=== PATIENT | female | born 1980 | race Caucasian/White ===

== ENCOUNTER 2017-04-29 21:58 | Inpatient (IN) | payer OTHER ==
[2017-04-29 22:37] LABS: Hematocrit 39 % (35-47); Hemoglobin 13.1 g/dl (12.0-16.0); Mean Corpuscular HGB Conc 34 g/dl (31-36); Mean Corpuscular Hemoglobin 30 pg (27-31); Mean Corpuscular Volume 88 fL (80-97); Mean Platelet Volume 9 um3 (7.4-10.4); Red Blood Count 4.44 10^6/ul (4.0-5.4); Red Cell Distribution Width 13 % (10.5-15); White Blood Count 11.3 10^3/ul (3.5-10.8)
[2017-04-30] MEDS ORDERED: OBEPIDURAL* 250 ML ONE (02:25)
[2017-04-30] MEDS ORDERED: Famotidine TAB* 20 MG PO PRN (02:40)
[2017-04-30] MEDS ORDERED: Sodium Citrate/Citric Acid* 15 ML UDC PO PRN (02:40)
[2017-04-30] MEDS ORDERED: Phenylephrine IV* 40 MCG/ML 10 ML SYRINGE IV PUSH PRN ×2 (02:40)
[2017-04-30] MEDS ORDERED: OBEPIDURAL* 250 ML EPIDURAL SCH (03:00)
[2017-04-30] MEDS ORDERED: Oxytocin in LR* 20 UNITS/1,000 ML BAG IVPB ONE (05:05)
[2017-04-30] MEDS ORDERED: Oxytocin in LR* 20 UNITS/1,000 ML BAG IVPB SCH ×2 (06:00→13:00)
[2017-04-30] MEDS ORDERED: Witch Hazel PAD* JAR TOPICAL PRN (11:26)
[2017-04-30] MEDS ORDERED: Dibucaine 1% 28.35 GM TUBE PR PRN (11:26)
[2017-04-30] MEDS ORDERED: Glycerin ADULT SUPP PR PRN (11:26)
[2017-04-30] MEDS ORDERED: Acetaminophen TAB* 325 MG PO PRN (11:26)
[2017-04-30] MEDS ORDERED: oxyCODONE/Acetamin 5/325 MG* TAB PO PRN (11:26)
[2017-04-30] MEDS ORDERED: Misoprostol TAB* 200 MCG ONE (12:25)
[2017-04-30] MEDS ORDERED: Simethicone CHEW TAB* 80 MG PO SCH (12:30)
[2017-04-30] MEDS ORDERED: Misoprostol TAB* 200 MCG PR ONE (12:32)
[2017-04-30] MEDS ORDERED: Ammonia Inhalant* 1 EA AMP ONE ×2 (13:43→15:38)
[2017-04-30] MEDS: Docusate CAP* 100 MG PO SCH ×2 (14:00→19:40)
[2017-04-30] MEDS ORDERED: Phenylephrine IV* 40 MCG/ML 10 ML SYRINGE ONE (18:47)
[2017-04-30] MEDS ORDERED: Zolpidem TAB* 5 MG PO PRN (21:00)
[2017-05-01 08:00] LABS: Hematocrit 29 % (35-47); Hemoglobin 9.9 g/dl (12.0-16.0); Mean Corpuscular HGB Conc 34 g/dl (31-36); Mean Corpuscular Hemoglobin 30 pg (27-31); Mean Corpuscular Volume 88 fL (80-97); Mean Platelet Volume 9 um3 (7.4-10.4); Red Blood Count 3.29 10^6/ul (4.0-5.4); Red Cell Distribution Width 13 % (10.5-15); White Blood Count 10.7 10^3/ul (3.5-10.8)
[2017-05-01] MEDS: Ibuprofen TAB* 600 MG PO PRN ×2 (10:21→19:41)
[2017-05-01] MEDS: Ferrous Gluconate TAB* 324 MG TAB PO SCH ×2 (10:21→19:40)
[2017-05-01] MEDS: Docusate CAP* 100 MG PO SCH ×3 (10:21→19:40)
[2017-05-02 07:46] VITALS: BP 115/78
[2017-05-02] MEDS: Ferrous Gluconate TAB* 324 MG TAB PO SCH (08:04)
[2017-05-02] MEDS: Docusate CAP* 100 MG PO SCH (08:04)
[2017-05-02] MEDS: Ibuprofen TAB* 600 MG PO PRN (08:04)
== END 2017-05-02 12:55 | disposition home or self-care (01) | DRG 775 ==
LOC: MCHOBOUT 21:58 → MCHOB 22:18
PROVIDERS: ADMIT Obstetrics & Gynecology; ATTEND Obstetrics & Gynecology
PROC: 10E0XZZ Delivery of Products of Conception, External Approach (ICD-10-PCS; principal; 2017-04-30)
DX: O42.013 Preterm premature rupture of membranes, onset of labor within 24 hours of rupture, third trimester (principal); O75.89 Other specified complications of labor and delivery; Z3A.36 36 weeks gestation of pregnancy; Z37.0 Single live birth
CPT/HCPCS: 36415; 85025; 86850; 86900; 86901; A9270-GY

== ENCOUNTER 2018-05-10 11:32 | Emergency (ER) | payer OTHER ==
[2018-05-10 11:53] VITALS: BP 127/80
--- NOTE | 2018-05-10 12:28 | UC ---
Throat Pain/Nasal Thanh HPI - HPI Summary HPI Summary: The patient is a 37-year-old female that comes here for the evaluation of mouth lesions. She states that in early March she had a severe sore throat. She states that her tonsils were enlarged and had white spots on them. She had a difficult time swallowing. She had a strep test performed and it was negative. This bite the negative strep test she was placed on a ten-day course of antibiotics. It took almost 2 weeks for her sore throat to clear up. Since then she has had periodic mouth lesions. There will be a red area on either her soft palate R pharynx last for about a week and then disappears. She eats or drinks it causes some mild pain. Not had fever or chills. She has had no headache or myalgias. She had mononucleosis as a teen. - History of Current Complaint Chief Complaint: UCGeneralIllness Stated Complaint: TENDER SPOT IN MOUTH Time Seen by Provider: 05/10/18 11:50 Hx Obtained From: Patient Hx Last Menstrual Period: 04/22/18 Onset/Duration: Gradual Onset, Lasting Days Pain Intensity: 3 Pain Scale Used: 0-10 Numeric Cough: None - Allergies/Home Medications Allergies/Adverse Reactions: Allergies Allergy/AdvReac Type Severity Reaction Status Date / Time No Known Allergies Allergy Verified 04/29/17 22:50 Home Medications: Home Medications Cholecalciferol TAB* [Vitamin D TAB*] 05/10/18 [History] Stella-3 Fatty Acids (Nf) [Fish Oil (NF)] 05/10/18 [History] PMH/Surg Hx/FS Hx/Imm Hx Previously Healthy: Yes - Surgical History Surgical History: None - Family History Known Family History: Positive: Hypertension - Social History Alcohol Use: Occasionally Substance Use Type: None Smoking Status (MU): Never Smoked Tobacco Have You Smoked in the Last Year: No - Immunization History Most Recent Influenza Vaccination: fall 2014 Most Recent Tetanus Shot: 2014 Most Recent Pneumonia Vaccination: never Review of Systems Constitutional: Negative Skin: Negative Eyes: Negative ENT: Sore Throat Respiratory: Negative Cardiovascular: Negative Gastrointestinal: Negative Genitourinary: Negative Motor: Negative Neurovascular: Negative Musculoskeletal: Negative Neurological: Negative Psychological: Negative Is Patient Immunocompromised?: No All Other Systems Reviewed And Are Negative: Yes Physical Exam Triage Information Reviewed: Yes Appearance: Well-Appearing, No Pain Distress, Well-Nourished Vital Signs: Initial Vital Signs Temp 97.4 F 05/10/18 11:47 Pulse 55 05/10/18 11:47 Resp 16 05/10/18 11:47 BP 127/80 05/10/18 11:47 Pulse Ox 99 05/10/18 11:47 Eye Exam: Normal ENT: Positive: Normal ENT inspection, Pharyngeal erythema - see image. Negative : Tonsillar swelling, Tonsillar exudate Neck: Positive: Supple, Nontender, No Lymphadenopathy Respiratory: Positive: Lungs clear, Normal breath sounds, No respiratory distress, No accessory muscle use Cardiovascular: Positive: RRR, No Murmur Musculoskeletal: Positive: ROM Intact, No Edema Neurological Exam: Normal Neurological: Positive: Alert Psychological Exam: Normal Skin Exam: Normal Throat Pain/Nasal Course/Dx - Differential Dx/Diagnosis Provider Diagnoses: intraral lesions of uncertain cause. suspect viral etiology Discharge - Sign-Out/Discharge Documenting (check all that apply): Discharge/Admit/Transfer - Discharge Plan Condition: Stable Disposition: HOME Prescriptions: Magic Mouth Was-MORTEZA/MAAL/LIDO* 5 ml SWISH SWAL QID #200 ml Referrals: Guerrero Jeff MD [Primary Care Provider] - 1 Week Additional Instructions: I suspect your mouth lesions are due to a prolonged viral illness try magic mouth wash 5 ml -swish as long as you can then swallow 4 x day recheck with your MD next week - Billing Disposition and Condition Condition: STABLE Disposition: Home Images Dental: 1 - erthyema
== END 2018-05-10 12:31 | disposition home or self-care (01) ==
LOC: UCEAST 11:32
DX: K13.79 Other lesions of oral mucosa (principal)
CPT/HCPCS: 99211; G0463